=== PATIENT | male | born 1990 | race Caucasian/White ===

== ENCOUNTER 2022-02-02 22:00 | Emergency (ER) | payer MEDICAID ==
[~2022-02-02] VITALS: Ht 177.8 cm; Wt 75.9 kg
[2022-02-02 22:17] VITALS: BP 128/82
== END 2022-02-03 01:19 | disposition left against medical advice (07) ==
LOC: ER 22:01
DX: L02.91 Cutaneous abscess, unspecified (principal); Z53.21 Procedure and treatment not carried out due to patient leaving prior to being seen by health care provider